=== PATIENT | female | born 1965 | race Two or more races ===

== ENCOUNTER → 2021-04-23 | Outpatient (CLI) | payer OTHER, SELFPAY ==
[2021-04-23 15:42] LABS: Pathologist Comment May follow
[2021-04-23 16:34] LABS: RBC /Synovial Fluid 0.065 10^6/uL (0); Synovial Fld Mononuclear WBC % 52.2 %; Synovial Fld Polynuclear WBC # 6.336 10^3/uL; Synovial Fld Polynuclear WBC % 47.8 %
[2021-04-23 18:42] LABS: AUTO B FLUID DILUENT BKGD CT WBC <0.1 RBC <0.01 (W<.1,R<.01)
[2021-04-23 18:43] LABS: Appearance /Synovial Fluid Cloudy (CLEAR); Color / Synovial Fluid Yellow (Pale Yellow); Source / Synovial Fluid NG; Source- Body Fluid SYNOVIAL
[2021-04-23 19:04] LABS: Lymph 2 %; Neutrophil 85 % (0-25)
[2021-04-23 19:05] LABS: Body Fluid QC Type(s) BF1Q; Monocyte /Synovial Fluid 13 %
[2021-04-24 12:23] LABS: Pathologist Review Reviewed
== END | disposition home or self-care (01) ==
LOC: LABSPEC 15:18
PROVIDERS: Visit Provider Internal Medicine Rheumatology
DX: M05.79 Rheumatoid arthritis with rheumatoid factor of multiple sites without organ or systems involvement (principal); M47.892 Other spondylosis, cervical region; F41.9 Anxiety disorder, unspecified; F98.8 Other specified behavioral and emotional disorders with onset usually occurring in childhood and adolescence; L82.1 Other seborrheic keratosis
CPT/HCPCS: 89050; 89051; 89060